=== PATIENT | male | born 1990 | race Caucasian/White ===

== ENCOUNTER 2017-05-10 15:42 | Emergency (ER) | payer BC ==
--- NOTE | 2017-05-10 16:22 | EDM.PDOC ---
ED HPI GENERAL MEDICAL PROBLEM - General Chief Complaint: Neuro Symptoms/Deficits Stated Complaint: LT SIDE OF FACE IS NUMB Time Seen by Provider: 05/10/17 15:44 Source of Information: Reports: Patient History Limitations: Reports: No Limitations - History of Present Illness INITIAL COMMENTS - FREE TEXT/NARRATIVE: HISTORY AND PHYSICAL: History of present illness: Patient is a 26-year-old male who complains of left sided facial numbness/ tingling which is localized just to the left cheek. His pain does not radiate into the ear above the cheek bone or into the jaw. Patient states he has had this sensation on and off for several weeks. Does not have any neurological deficits or findings motor disruption. Patient reports that when he puts cold or ice to the left side of his mouth does have intense pain alleviates the cheek numbness. Although he does not have chronic dental pain, is concerned that this may be a dental abscess. Denies any blurred vision, headache, ear pain, temp oral pain, fever or chills. Denies any chest pain or shortness of breath. Denies any trauma or injury. Review of systems: As per history of present illness and below otherwise all systems reviewed and negative. Past medical history: As per history of present illness and as reviewed below otherwise noncontributory. Surgical history: As per history of present illness and as reviewed below otherwise noncontributory. Social history: No reported history of drug or alcohol abuse. Family history: As per history of present illness and as reviewed below otherwise noncontributory. Physical exam: Gen.: Nontoxic appearing 26-year-old male. Able to speak in full sentences without shortness of breath. Alert and oriented. HEENT: Atraumatic, normocephalic, pupils reactive, negative for conjunctival pallor or scleral icterus, mucous membranes moist, throat clear, neck supple, nontender, trachea midline. No temporal tenderness. Lungs: Clear to auscultation, breath sounds equal bilaterally, chest nontender. Heart: S1S2, regular, negative for clicks, rubs, or JVD. Abdomen: Soft, nondistended, nontender. Negative for masses or hepatosplenomegaly. Negative for costovertebral tenderness. Pelvis: Stable nontender. Genitourinary: Deferred. Rectal: Deferred. Extremities: Atraumatic, negative for cords or calf pain. Neurovascular unremarkable. Neuro: Awake, alert, oriented. Cranial nerves II through XII unremarkable. Cerebellum unremarkable. Motor and sensory unremarkable throughout. Exam nonfocal. Due to the unremarkable neurological exam and no recent injury or falls, a CT head is not warranted at this time. Is slight erythema to the right upper posterior molar where the pain is localized, will treat with antibiotics. I did encourage him to follow-up with a neurologist if this sensation continues. Patient voices understanding and is agreeable to plan of care. Denies any further questions at this time Diagnostics: [] Therapeutics: [] Impression: Neuropathic pain Plan: 1. Please take the antibiotics as prescribed. You may continue to apply ice to the area for discomfort. 2. Your neurological exam today was unremarkable. As we discussed if you continue to have this neuropathy sensation to your left face, I would like you to follow-up with neurology. 3. Return to the ED as needed and as discussed Definitive disposition and diagnosis as appropriate pending reevaluation and review of above. - Related Data Allergies Allergy/AdvReac Type Severity Reaction Status Date / Time No Known Allergies Allergy Verified 05/10/17 16:04 Home Meds: Home Meds . [No Known Home Meds] 05/10/17 [History] Past Medical History - Past Health History Medical/Surgical History: Denies Medical/Surgical History Social & Family History - Family History Family Medical History: Noncontributory - Tobacco Use Smoking Status *Q: Current Every Day Smoker Years of Tobacco use: 10 Packs/Tins Daily: 1 - Recreational Drug Use Recreational Drug Use: No ED ROS GENERAL - Review of Systems Review Of Systems: ROS reveals no pertinent complaints other than HPI. ED EXAM, NEURO - Physical Exam Exam: See Below (See dictation) Course - Vital Signs Last Recorded V/S: Last Vital Signs Temp 36.6 C 05/10/17 16:04 Pulse 95 05/10/17 16:31 Resp 18 05/10/17 16:31 BP 145/78 H 05/10/17 16:31 Pulse Ox 96 05/10/17 16:31 Departure - Departure Time of Disposition: 16:22 Disposition: Home, Self-Care 01 Clinical Impression: Neuropathy, Dental abscess - Discharge Information Instructions: Dental Abscess, [id number], Neuropathic Pain Referrals: PCP,None [Primary Care Provider] - Forms: ED Department Discharge Additional Instructions: My general discharge The following information is given to patients seen in the emergency department who are being discharged to home. This information is to outline your options for follow-up care. We provide all patients seen in our emergency department with a follow-up referral. The need for follow-up, as well as the timing and circumstances, are variable depending upon the specifics of your emergency department visit. If you don't have a primary care physician on staff, we will provide you with a referral. We always advise you to contact your personal physician following an emergency department visit to inform them of the circumstance of the visit and for follow-up with them and/or the need for any referrals to a consulting specialist. The emergency department will also refer you to a specialist when appropriate. This referral assures that you have the opportunity for follow-up care with a specialist. All of these measure are taken in an effort to provide you with optimal care, which includes your follow-up. Under all circumstances we always encourage you to contact your private physician who remains a resource for coordinating your care. When calling for follow-up care, please make the office aware that this follow-up is from your recent emergency room visit. If for any reason you are refused follow-up, please contact the [facility] Emergency Department at and asked to speak to the emergency department charge nurse. [facility] Specialty Care - Neurology Professional Building [address] [place] [address], [address] [place] [address] 1. Please take the antibiotics as prescribed. You may continue to apply ice to the area for discomfort. 2. Your neurological exam today was unremarkable. As we discussed if you continue to have this neuropathy sensation to your left face, I would like you to follow-up with neurology. 3. Return to the ED as needed and as discussed
== END 2017-05-10 16:31 | disposition home or self-care (01) ==
LOC: MW.ED 15:42
DX: K04.7 Periapical abscess without sinus (principal); F17.210 Nicotine dependence, cigarettes, uncomplicated
CPT/HCPCS: 99283